=== PATIENT | male | born 1950 | race African-American/Black ===

== ENCOUNTER → 2017-06-08 | Day surgery (SDC) | payer MEDICARE ==
[~2017-06-08] VITALS: Ht 188 cm; Wt 89.4 kg
[2017-06-08] VITALS (11 sets, daily range): BP systolic 113–140; BP diastolic 59–83; PULSE 53–67; RESP 8–16; O2SAT 95–100
[~2017-06-08] MED LIST: AMLO10TA3 PO; ATRV10T PO; Atropine 0.4 mg/mL Inj IVPUSH PRN; Bupivacaine-MPF 0.5% 30 mL Inj INJ ONE; CeFAZolin 2 Gm/50 mL D5W Duplex Bag IV ONE; CeFAZolin Inj 2 GM in IV Premix 1 EACH IV ONE; Dexamethasone 4 mg/mL Inj IVPUSH PRN; Dexamethasone 4 mg/mL Inj ONE; EPHEDrine Sulfate 50 mg/mL Inj IVPUSH PRN; HYDROcodone-APAP 5-325 mg Tablet PO PRN; HYDROmorphone 1 mg/mL Inj IVPUSH PRN; Labetalol 5 mg/mL 20 mL Inj IV PRN; Lactated Ringer's 1,000 ML IV SCH; Lactated Ringer's 500 ML IV PRN; Lidocaine MPF 2%-Epi 1:200,000 20mL Inj NERVEBLOCK ONE; MetoCLOpramide 5 mg/mL 2 mL Inj IVPUSH PRN; Ondansetron 2 mg/mL 2 mL Inj IVPUSH PRN; Ondansetron 2 mg/mL 2 mL Inj ONE; Phenylephrine 10,000 mCg/mL Inj IVPUSH PRN; Propofol 10,000 mCg/mL 20 mL Inj ONE; fentaNYL-PF 50 mCg/mL 2 mL Inj IVPUSH PRN; fentaNYL-PF 50 mCg/mL 2 mL Inj ONE
[2017-06-08] MEDS: Lactated Ringer's 1,000 ML IV SCH ×2 (05:14→07:26)
--- NOTE | 2017-06-08 08:01 | PCM.HPANE ---
Patient Data Date of Service: Jun 08, 2017 Surgeon Admitting Provider: Attending Provider:Samuel Ramos DPM Primary Care Physician:Clifton James MD Other Provider:Beverly Valero Anesthesia Reason for Visit Right Ankle Instability,Maite's Deformity Ht/WT & BMI Height (Feet): 6 Height (Inches): 2.00 Weight (Kilograms): 89.4 Body Mass Index 25.00 Allergies Coded Allergies: No Known Drug Allergies (Verified Allergy, Unknown, 06/13/16) Uncoded Allergies: nut flavoring (Allergy, Unknown, unknown, 08/06/15) Past Anesthesia History Anesthesia History: Positive for:: Anesthesia Reactions ("COMA" AFTER GA-PT COULD PRODUCE NO OTHER DETAILS), Denies:: Malignant Hyperthermia Additional Information: multiple anesthetics more recently without problems Diabetes History Hx Diabetes?: No MRSA MRSA: No Medications Hypertension Medication: Yes Home Meds Incl Beta Izabella: No Reported Medications Atorvastatin (Lipitor)10 Mg Tab10 Mg PO DAILY Ref 0 05/31/17 Amlodipine 10 Mg Eaktkg02 Mg PO DAILY Ref 0 05/31/17 History History of ENT Problems?: No HEENT History: Denies:: Hearing Problem Denture Type: None Teeth Condition: Within Normal Limits Hx of Heart Problems?: Yes Cardiovascular History: Positive for:: Hypertension Denies:: Chest Pain Irregular Heartbeat Valvular Heart Disease Hx of Respiratory Problem?: No Respiratory History: Denies:: Asthma COPD Emphysema Oxygen Administration Pneumonia Tuberculosis Use of C-PAP Machine Hx Neurologic Problems?: No Neurological History: Denies:: CVA Headaches Multiple Sclerosis Parkinson's Disease Hx of GI Problems?: No Hx of Problems?: Yes Genitourinary History: Positive for:: Kidney Stones (prior hx of kidney stones ) Male Hx: Positive for:: Prostate Problems (hx of turp, tur bladder neck) Denies:: Scrotal Mass Testicular Surgery Skin History: Positive for:: History Skin Disorders? 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) Denies:: Pressure Ulcers Hx Musculoskeletal Problems?: Yes Musculoskeletal History: Positive for:: Musculoskeletal Trauma (right ankle current admission problem) Hx of Psycho/Social Problems?: No Hx Surgeries?: Yes (TURP, LT ANKLE ARTHROSCOPY W/ EXC TALOR LESION ) Hx Any Other Health Problems?: Yes Other History: Denies:: Cancer Endocrine Disease Hospitalization Thyroid Disease History Blood Transfusions: Denies:: Blood Transfusions Hx Diabetes: No Hx Alcohol Use: NoHx Substance Use: No Smoking Status: Unknown if Ever Smoker Have You Smoked inLast 12 mo: No Stop/Bang S-Snoring: Do You Snore Loudly: Yes T-Tired: feel tired, fatigued: Yes O-Obsered: Observed not breath: No P-Blood Pressure: treated: Yes B- Body Mass Index > 35 kg/m2: No A- Age over 50: Yes N- Neck Large Circumference: No G- Gender Male: Yes JUANJOSE Risk Assessment: High Risk, =/>3 Yes JUANJOSE Category 2: Yes Risk Assessment Category Category 1A: Patient has history of documented sleep apnea, and HAS NOT received any narcotic, sedative or anesthesia administration during this stay. Category 1B: Patient has history of documented sleep apnea, and HAS received any narcotic , sedative or anesthesia administration during this stay Category 2: Patient has SUSPECTED Obstructive Sleep Apnea, and HAS received any narcotic , sedative or anesthesia administration during this stay. Category 3: Patient has SUSPECTED Obstructive Sleep Apnea and HAS NOT received narcotic, sedative or anesthesia administration during this stay. Category 4: Outpatient in Procedural Areas with known sleep apnea or who screen positive for High Risk via the STOP/BANG questionnaire. Exam Exam Vital Signs Vital Signs Date Time Temp Pulse Resp B/P Pulse Ox O2 Delivery O2 Flow Rate FiO2 06/08/17 06:11 36.2 54 16 140/83 100 Room Air General Appearance: Alert, Oriented X3, Cooperative, No Acute Distress HEENT/AIRWAY: MP 2 Lungs: Normal Air Movement Heart: Exam Unremarkable Meds/Labs/Diagnostics Admission Meds Current Medications Lactated Ringer's (Lr) 1,000 ml @ 120 mls/hr Q8H20M IV Last administered on t 05:14; Start 06/08/17 at 05:00; Stop 06/08/17 at 13:19 Plan Impression Patient chart reviewed, patient interviewed and anesthestic plan with risks, benefits, and alternatives discussed, and informed consent obtained. ASA Physical Status: ASA2 Mod Systemic Disease Anesthetic Plan: GA Bene/Risks/Altern/Consents: Yes HP Complete Prior to Induction: Yes Óscar Galdamez MD Jun 08, 2017 06:57
--- NOTE | 2017-06-08 11:53 | PCM.ANEP1 ---
Post Anesthesia PACU Phase 1 Assessment Vital Signs Vital Signs Date Time Temp Pulse Resp B/P Pulse Ox O2 Delivery O2 Flow Rate FiO2 06/08/17 11:50 62 14 125/69 95 Room Air 06/08/17 11:41 61 16 121/61 98 Room Air 06/08/17 11:30 36.4 53 14 115/59 96 Room Air 06/08/17 11:20 58 9 113/62 98 Room Air 06/08/17 11:15 62 15 131/68 99 Room Air 06/08/17 11:10 67 16 132/72 98 Room Air 06/08/17 11:05 64 14 136/77 100 Room Air 06/08/17 11:00 66 12 140/78 100 Simple Mask 8 06/08/17 10:56 35.7 63 10 137/75 100 Simple Mask 8 06/08/17 06:11 36.2 54 16 140/83 100 Room Air Anesthetic Administered: GA Level of Alertness: Awake, talking JONES's with Equal Strength: Yes Pain: No Nausea or Vomiting: No CV Function & Hydration Stable: Yes Airway Device: Oxygen Delivery: Simple Mask Lungs: Normal Air Movement PACU Phase 2 Assessment Complications: No Follow up Care: N/A Patient Instructions Provided: N/A Óscar Galdamez MD Jun 08, 2017 11:53
--- NOTE | 2017-06-09 11:04 | PCM.PODPO ---
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 right lower extremity Loose bodies within the anterior aspect of this sinus tarsi slightly posterior to the anterior calcaneal process Lateral ankle instability Plantar fasciitis Post Operative Diagnosis Same as preoperative diagnoses Procedure Excision of Maite's deformity and retrocalcaneal bone spur with repair and debridement of the distal Achilles tendon Removal of bone fragments right foot Lateral ankle stabilization with brostrum repair right ankle Plantar fasciotomy right lower extremity Surgeon Surgeon: Samuel Ramos DPM Assistants: None Indication for Procedure Chronically painful right foot and ankle with moderate right ankle instability Findings Multiple small loose bodies within the anterior aspect of the sinus tarsi, significant scar tissue formation overlying the anterior talofibular and calcaneofibular ligament, moderate calcification of the distal Achilles tendon insertion into the posterior calcaneus with a small local bone spur, noted thickening of the insertion of the medial band of the plantar fascia Details of Procedure the patient was identified in the preoperative holding area and preoperative consent was obtained. Patient was then transported into the operating room and placed onto the operating room table in the prone position following induction of general anesthesia by the anesthesia service. A preoperative block consisting of 10 mL of 2% lidocaine with epinephrine was given to the right posterior ankle and distal Achilles tendon insertion. The patient was then prepped and draped in the normal aseptic technique. A #15 blade was utilized to make a linear incision directly overlying the distal aspect of the Achilles tendon insertion and posterior calcaneus approximately 5 cm in length once that initially her skin all subcutaneous neurovascular structures were identified and retracted out of the surgical field. Sharp dissection was carried down through subcutaneous tissue carefully to avoid damage to underlying peritenon. The distal Achilles tendon was exposed as well as the insertion into the posterior calcaneus and the distal aspect of the posterior calcaneal surface. A fresh #15 blade was then utilized to incise through the distal 3 cm of the Achilles tendon which was then reflected both medially and laterally exposing the posterior body of the calcaneus and the enlarged Maite's deformity. Mild amount of bursal tissue was noted and the retrocalcaneal space and debrided with a rongeur. A sagittal saw was then utilized to resect the Maite's deformity which was removed from the body in whole. A rasp was then utilized to smooth out this area so that there was no significant bony prominence. The sagittal saw was then utilized to remove a small bone spur noted at the insertion of the Achilles tendon and a rasp was also utilized to smooth the posterior aspect of the calcaneal body. Intraoperative C-arm guidance was utilized to verify removal of the bone spur and Maite's deformity. Inspection of the distal Achilles tendon insertion revealed moderate calcification which was debrided sharply. An Arthrex speed bridge was then utilized to reattach the Achilles tendon to the posterior aspect of the calcaneus in the normal technique following repair of the Achilles tendon midline utilizing the provided 2. 0 FiberWire suture. This wound was ankle was a flush with normal saline. Deep closure was performed utilizing number 3. 0 Vicryl and skin closure was performed utilizing number 4. 0 Vicryl in a buried subcuticular fashion. The wound was then dressed with Kerlix wrap. All drapes were then removed, positioning help was called into the room and the patient was transferred back into the supine position with the use of a stretcher temporarily. The patient was then placed back on the table in the supine position. The Kerlix dressing was then removed and the right lower extremity was reprepped and draped in the normal sterile technique. An additional perioperative timeout was performed prior to continuing with the remainder of the procedure. Attention was then paid to the lateral aspect of the right foot and ankle. An approximately 8 cm curvilinear incision was carried over the distal aspect of the fibula slightly anterior to the midline and extended distally toward the base of the fourth metatarsal once through the initial layer skin all subcutaneous neurovascular structures were identified and retracted out of the surgical field. Blunt dissection was carried down with a Metzenbaum scissor to deep fascia. The extensor digitorum brevis muscle belly was identified. The inferior border of the extensor digitorum and brevis muscle belly was carefully incised and a retractor was utilized to retract the peroneal tendon sheath plantarly in order to ensure no damage was done to the tendon sheath itself. Sharp dissection was then continued to reflect the extensor digitorum muscle belly distally exposing the lateral anterior aspect of the calcaneus and the anterior calcaneal process. Care was taken not to disrupt any ligamentous structures of the calcaneocuboid joint. Direct visualization of multiple loose bodies surrounding the anterior calcaneal process at the anterior aspect of the sinus tarsi was performed and a 15 blade and pickup were then utilized to carefully excise from soft tissue attachments. These loose bodies were removed from the body in whole. This wound was then copiously flushed with large amounts of normal saline. Number 3. 0 Vicryl suture was then utilized to reattach the extensor digitorum muscle belly into its original position. Blunt dissection was then carried down through subcutaneous tissue overlying the distal aspect of the right fibula. Neurovascular structures were retracted out of the surgical field. A #15 blade was utilized to incise through soft tissue slightly anterior to the distal aspect of the fibula and a periosteal flap consisting of approximately 4 mm was raised superiorly. Inspection of the anterior talofibular and calcaneofibular ligament revealed a moderate amount of scar tissue formation. The scar tissue was debrided and removed from the eye. The wound was then copiously flushed with large amounts normal second saline. Approximately 5 mm of the insertion of the anterior talofibular and calcaneofibular ligament were then resected. 2 #2.4 mm suture anchors were then inserted at the area of the insertion of the anterior talofibular and calcaneofibular ligament the provided FiberWire suture was then utilized to repair the attachment of the anterior talofibular and calcaneofibular ligaments respectively. The extensor retinaculum was incorporated into the repair to provide additional stability and the previously elevated periosteal flap was incorporated superficially to complete the repair. This wound was then copiously irrigated with normal saline deep closure was performed utilizing number 3. 0 Vicryl and skin closure was performed utilizing number 3. 0 Prolene. Attention was then paid to the medial aspect of the plantar heel a linear incision slightly superior to the medial glabular junction was made approximately 3 cm in length. Blunt dissection was carried down with a Metzenbaum scissor to identify the medial aspect of the plantar fascial band and its insertion into the calcaneus. Small ossicles were noted in this area and debrided with a rongeur. A #15 blade was then utilized to incise through the medial plantar fascial band releasing it slightly distal to its attachment into the medial aspect of the Plantar tuberosity. This wound was then copiously flushed with large amounts of normal saline. Deep closure was performed utilizing number 3. 0 Vicryl and skin closure was performed utilizing number 3. 0 Prolene. No complications occurred during this procedure. All wounds were then dressed with Adaptic sterile 4 x 4 gauze Kerlix and Steri-Strips were applied to the posterior incision. The patient was then placed into a mild compression dressing consisting of cast padding and Zacarias bandages with a posterior splint. The patient was then awoken by anesthesia and transported out of the operating room. No complications occurred during this procedure. Grafts, Implants: Implants-See Implant Record Complications There were no periprocedural complications identified. Condition Stable Anesthetic Administered: GA Catheters: None Output, Estimated Blood Loss: 30 Blood Admin during surgery: No Surgical Cast or Splint: None Surgical Specimen Removed: No Specimen sent to Pathology: No Post Operative Plan Ice and elevate right lower extremity Nonweightbearing right lower extremity Keep dressing clean dry and intact Discharged to home when stable Samuel Ramos DPM Jun 09, 2017 11:04
== END | disposition home or self-care (01) ==
LOC: SAS 05:48
PROVIDERS: ATTEND Podiatrist Foot & Ankle Surgery
DX: M25.371 Other instability, right ankle (principal); M92.61 Juvenile osteochondrosis of tarsus, right ankle; M79.671 Pain in right foot; I12.9 Hypertensive chronic kidney disease with stage 1 through stage 4 chronic kidney disease, or unspecified chronic kidney disease; N18.9 Chronic kidney disease, unspecified; E78.5 Hyperlipidemia, unspecified
CPT/HCPCS: 27698; 28060; 28119; C1713; J0690; J1100; J1170; J1885; J2175; J2250; J2405; J2704; J2765; J3010; J7120